=== PATIENT | female | born 1940 | race Hispanic/Latino ===

== ENCOUNTER 2021-03-25 00:07 | Emergency (ER) | payer MEDICARE, BC ==
--- NOTE | 2021-03-25 01:09 | Cat Scan Report ---
CT HEAD WITHOUT CONTRAST INDICATION / CLINICAL INFORMATION: Altered Mental Status. TECHNIQUE: All CT scans at this location are performed using CT dose reduction for ALARA by means of automated exposure control. COMPARISON: None available. FINDINGS: BRAIN PARENCHYMA: No acute intracranial hemorrhage. No evidence of recent infarct. No mass effect or midline shift. White matter chronic small vessel ischemic changes. VENTRICULAR SYSTEM/EXTRA-AXIAL SPACES: Prominent diffuse cerebral atrophy. No extra-axial fluid colle ction. ORBITS: Normal as visualized. SKELETAL SYSTEM/SOFT TISSUES: Normal bones and soft tissues. PARANASAL SINUSES/MASTOID AIR CELLS: No significant abnormality. ADDITIONAL FINDINGS: None. IMPRESSION: 1. No acute intracranial abnormality. Signer Name: Magan Guillermo MD Signed: 03/25/2021 1:05 AM Workstation Name: [id number]
--- NOTE | 2021-03-25 01:32 | Emergency Department Report ---
ED General Adult HPI - General Chief complaint: Medical Clearance Stated complaint: AMS X 1.5 DAYS Source: EMS Mode of arrival: Stretcher Limitations: No Limitations - History of Present Illness Initial comments: 81 yo F with hx of schizophrenia, here with complaint of altered mental status. Per patient's daughter Patient's psychiatrist recommended putting her medications in coffee due to patient not taking her medications. This was working previously. Last night patient looked bizarre, approached her in an inappropriate way. Today patient was slumped over talking about her legs were wobbling and she had drooling. She did not get up from table. She ate dinner but could not keep food down. She has not been herself. - Related Data Home Medications Medication Instructions Recorded Confirmed Last Taken ALBUTEROL NEB's [Proventil 0.083% 2.5 mg IH TID PRN 08/01/14 08/01/14 Unknown NEBS] OLANzapine [ZyPREXA] 10 mg PO QDAY 08/01/14 08/01/14 Unknown Tiotropium [Spiriva] 18 mcg IH QDAY 08/01/14 08/01/14 Unknown Previous Rx's Medication Instructions Recorded Last Taken Type cephALEXin [Keflex] 500 mg PO Q6H #20 capsule 08/23/14 Unknown Rx oxyCODONE /ACETAMINOPHEN [Percocet 1 tab PO Q6HR PRN #20 tablet 08/23/14 Unknown Rx 5/325] levoFLOXacin [Levaquin] 500 mg PO QDAY #10 tablet 10/01/14 Unknown Rx Allergies Allergy/AdvReac Type Severity Reaction Status Date / Time aspirin Allergy Unknown Verified 08/01/14 05:45 Sulfa (Sulfonamide AdvReac Rash Verified 03/25/21 00:14 Antibiotics) ED Review of Systems ROS: Stated complaint: AMS X 1.5 DAYS Other details as noted in HPI Comment: Unobtainable due to pts medical conditions ED Past Medical Hx - Past Medical History Hx Psychiatric Treatment: Yes (SCHIZOPHRENIA) Hx COPD: Yes - Surgical History Hx Cholecystectomy: Yes Additional Surgical History: cyst removed from breast - Social History Smoking Status: Unknown if ever smoked Substance Use Type: None - Medications Home Medications: Home Medications Medication Instructions Recorded Confirmed Last Taken Type ALBUTEROL NEB's [Proventil 0.083% 2.5 mg IH TID PRN 08/01/14 08/01/14 Unknown History NEBS] OLANzapine [ZyPREXA] 10 mg PO QDAY 08/01/14 08/01/14 Unknown History Tiotropium [Spiriva] 18 mcg IH QDAY 08/01/14 08/01/14 Unknown History cephALEXin [Keflex] 500 mg PO Q6H #20 capsule 08/23/14 Unknown Rx oxyCODONE /ACETAMINOPHEN [Percocet 1 tab PO Q6HR PRN #20 tablet 08/23/14 Unknown Rx 5/325] levoFLOXacin [Levaquin] 500 mg PO QDAY #10 tablet 10/01/14 Unknown Rx ED Physical Exam - General Limitations: No Limitations General appearance: alert, in no apparent distress - Head Head exam: Present: atraumatic, normocephalic - Eye Eye exam: Present: normal appearance - ENT ENT exam: Present: normal exam - Neck Neck exam: Present: normal inspection - Respiratory Respiratory exam: Present: normal lung sounds bilaterally. Absent: respiratory distress - Cardiovascular Cardiovascular Exam: Present: regular rate, normal rhythm. Absent: systolic murmur, diastolic murmur, rubs, gallop - GI/Abdominal GI/Abdominal exam: Present: soft, normal bowel sounds - Rectal Rectal exam: Present: deferred - Extremities Exam Extremities exam: Present: normal inspection - Back Exam Back exam: Present: normal inspection - Neurological Exam Neurological exam: Present: alert, oriented X3. Absent: motor sensory deficit - Psychiatric Psychiatric exam: Present: normal affect, normal mood - Skin Skin exam: Present: warm, dry, intact, normal color. Absent: rash ED Course Vital Signs 03/25/21 03/25/21 03/25/21 00:14 04:00 11:46 Temperature 97.4 F L Pulse Rate 61 72 Respiratory 14 16 Rate Blood Pressure 106/79 113/64 [Left] O2 Sat by Pulse 99 97 100 Oximetry 03/25/21 19:47 Temperature 97.9 F Pulse Rate 84 Respiratory 16 Rate Blood Pressure 109/76 [Left] O2 Sat by Pulse 99 Oximetry - Reevaluation(s) Reevaluation #1: 03/25/21 06:37 Medically cleared. Has UTI but no evidence of any sepsis, patient is not tachycardic, there is no elevated white blood cell count nor hypotension. Patient here appears alert and she has been oriented. Given this I do think that patient needs psychiatric evaluation. Patient has antibiotics that are ordered for the next few days and has been given ceftriaxone. ED Medical Decision Making - Lab Data Result diagrams: 03/25/21 01:16 03/25/21 01:16 - Medical Decision Making 81-year-old female here with complaint of altered mental status for the past day and a half as well as some bizarre behavior. Patient has a history of schizophrenia. Patient's daughter provides additional history. Currently patient is is alert and oriented x3, has no motor or sensory deficits on my exam. Plan to evaluate with basic labs, urinalysis and per patient's family request patient to also have a mental health evaluation. Critical care attestation.: If time is entered above; I have spent that time in minutes in the direct care of this critically ill patient, excluding procedure time. ED Disposition Clinical Impression: UTI (urinary tract infection), Delirium Disposition: [address] [place] [address] Is pt being admited?: No Does the pt Need Aspirin: No Condition: Stable Referrals: LILIAN JIANG MD [Primary Care Provider] - 3-5 Days
--- NOTE | 2021-03-25 01:37 | Emergency Department Report ---
Blank Doc - Documentation Documentation: Patient's daughter's phone number is [phone]. Aisha Louis.
[2021-03-25 03:50] LABS: Basophils % (Auto) 0.2 % (0.0-1.8); Eosinophils # (Auto) 0.2 K/mm3 (0.0-0.4); Eosinophils % (Auto) 2.7 % (0.0-4.3); Hematocrit 41.5 % (30.3-42.9); Hemoglobin 13.3 gm/dl (10.1-14.3); Lymphocytes % (Auto) 30.7 % (13.4-35.0); Mean Corpuscular HGB Conc 32 % (30-34); Mean Corpuscular Volume 92 fl (79-97); Monocytes # (Auto) 0.8 K/mm3 (0.0-0.8); Monocytes % (Auto) 12.6 % (0.0-7.3); Platelet Count 193 K/mm3 (140-440); Red Blood Count 4.52 M/mm3 (3.65-5.03); Red Cell Distribution Width 14.1 % (13.2-15.2)
[2021-03-25 04:07] LABS: Albumin 4.4 g/dL (3.9-5); Calcium 9.8 mg/dL (8.4-10.2)
[2021-03-25 04:48] LABS: Bilirubin,Urine NEG (Negative); Blood,Urine NEG (Negative); Color,Urine Yellow (Yellow); Mucus,Urine FEW /HPF; Protein,Urine <15 mg/dL mg/dL (Negative); Urobilinogen,Urine < 2.0 mg/dL (<2.0)
[2021-03-25] MEDS ORDERED: cefTRIAXone/NS 1 GM/50 ML 1 GM/50 ML BAG IV ONE ×2 (05:15→08:17)
[2021-03-25] MEDS ORDERED: FLUCONAZOLE 100 MG TAB PO ONE (05:16)
[2021-03-25 06:20] LABS: Benzodiazepines Screen,Urine Negative; Cannabinoid Screen,Urine Negative; Cocaine Screen,Urine Negative; Methadone Screen,Urine Negative; Opiate Screen,Urine Negative
[2021-03-25 06:44] LABS: Amphetamine Screen,Urine Positive
[2021-03-25] MEDS ORDERED: cephALEXin 500 MG CAP PO ONE (10:37)
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
--- NOTE | 2021-03-25 15:38 | Event Note ---
Date: 03/25/21 S: No events reported overnight O: Vital Signs - 8 hr 03/25/21 11:46 Pulse Rate 72 Respiratory 16 Rate Blood Pressure 113/64 [Left] O2 Sat by Pulse 100 Oximetry A: Schizophrenia, UTI P: 1013, awaiting inpatient psych
[2021-03-25 19:55] VITALS: BP 109/76
[2021-03-26] MEDS ORDERED: cephALEXin 500 MG CAP PO SCH (06:00)
== END 2021-03-25 20:45 ==
LOC: EEVIPCON 00:07 → ED 00:07
DX: N39.0 Urinary tract infection, site not specified (principal); F20.9 Schizophrenia, unspecified; J44.9 Chronic obstructive pulmonary disease, unspecified; Z90.49 Acquired absence of other specified parts of digestive tract; Z88.6 Allergy status to analgesic agent; Z88.2 Allergy status to sulfonamides; Z79.899 Other long term (current) drug therapy
CPT/HCPCS: 36415; 70450; 80053; 80307; 81001; 85025; 99285; J0696; 80320; 87086; G0480